=== PATIENT | female | born 1980 | race Two or more races ===

== ENCOUNTER 2021-03-27 07:38 | Emergency (ER) | payer OTHER ==
[~2021-03-27] VITALS: Ht 162.6 cm; Wt 70.3 kg
--- NOTE | 2021-03-27 08:03 | NUR ---
[email or web address], medical screening exam in progress
[2021-03-27] MEDS ORDERED: KETOROLAC TROMETHAMINE 15 MG INJ IVP ONE (08:15)
[2021-03-27] MEDS ORDERED: IV NORMAL SALINE 1000 ML BAG IV ONE (08:15)
[2021-03-27] MEDS ORDERED: LIDOCAINE VISCUS 2% 15 ML UDC MM ONE (08:15)
[2021-03-27] MEDS ORDERED: MAG HYDROX/AL HYDROX/SIMETH 30 ML LIQUID UDC PO ONE (08:15)
[2021-03-27] MEDS ORDERED: LIDOCAINE VISCUS 2% 15 ML UDC ONE (08:20)
[2021-03-27] MEDS ORDERED: MAG HYDROX/AL HYDROX/SIMETH 30 ML LIQUID UDC ONE (08:20)
[2021-03-27] MEDS ORDERED: KETOROLAC TROMETHAMINE 15 MG INJ ONE (08:20)
[2021-03-27 08:28] LABS: *BILIRUBIN,URIN NEGATIVE (NEGATIVE); *CLARITY,URINE CLEAR (CLEAR); *COLOR,URINE YELLOW (YELLOW); *KETONES,URINE NEGATIVE (NEGATIVE); *UROBILINOGEN,URINE 0.2 E.U./dl (NORMAL); LEUKOCYTE ESTERASE ,URINE 2+ (NEGATIVE); NITRITE, URINE POSITIVE (NEGATIVE); PH,URINE 6.5 (5.0-8.0); UGLUCOSE NEGATIVE (NEGATIVE)
[2021-03-27 08:30] LABS: *URINE HCG, QUAL NEG (NEGATIVE)
[2021-03-27 08:31] LABS: HEMATOCRIT 39.5 % (31.2-41.9); MEAN CORPUSCULAR HEMOGLOBIN 31.5 uug (24.7-32.8); MEAN CORPUSCULAR VOLUME 95.8 fL (75.5-95.3); PLATELET COUNT (AUTO) 284 K/uL (179-408)
[2021-03-27 08:31] LABS: *BLOOD, URINE TRACE (NEGATIVE)
[2021-03-27 08:32] LABS: CREATININE 0.9 mg/dL (0.6-1.3); POTASSIUM 4.7 mmol/L (3.5-5.1)
[2021-03-27 08:38] LABS: BILIRUBIN,DIRECT 0.1 mg/dL (0.0-0.2); BILIRUBIN,TOTAL 0.2 mg/dL (0.2-1.0); TOTAL PROTEIN, SERUM 7.6 g/dL (6.4-8.2)
[2021-03-27] MEDS ORDERED: CEphaleXIN 500 MG CAPSULE PO ONE (10:00)
[2021-03-27] MEDS ORDERED: ACET-2154 PO (10:02)
[2021-03-27] MEDS ORDERED: CEPH500C2 PO (10:02)
[2021-03-27] MEDS ORDERED: CEphaleXIN 500 MG CAPSULE ONE (10:24)
--- NOTE | 2021-03-27 10:29 | NUR ---
IV removed. Catheter intact and site benign. Pressure and 4x4 gauze applied to site. No bleeding noted. Patient discharged to home in stable condition. Written and verbal after care instructions given. Patient verbalized understanding & compliance of instructions. Stressed follow up with your primary doctor and airconditioning engineer or return to ER for worsening s/s. Copies of all tests' results were provided as well.
[2021-03-27 13:20] LABS: BACTERIA,URINE MANY /HPF (NONE SEEN); RBC,URINE 0-3 /HPF (0-3); SQUAMOUS EPITHELIAL CELL,UR FEW /HPF (NONE SEEN)
== END 2021-03-27 10:32 | disposition home or self-care (01) ==
LOC: ER 07:38
DX: R10.9 Unspecified abdominal pain (principal); D25.9 Leiomyoma of uterus, unspecified; N39.0 Urinary tract infection, site not specified; N94.6 Dysmenorrhea, unspecified
CPT/HCPCS: 36415; 74176; 80048; 80076; 81001; 83690; 84703; 85025; 87077; 87086; 87186; 96361; 96374; 99284; J1885; J7030